=== PATIENT | female | born 1965 | race Caucasian/White ===

== ENCOUNTER → 2023-01-15 | Outpatient (CLI) | payer OTHER ==
[~2023-01-15] MED LIST: ASPI-1450 PO; IBUP-1493 PO
[2023-01-16 10:08] LABS: RUBEOLA (MEASLES) IGG 41.3 AU/mL (Immune >16.4)
== END | disposition home or self-care (01) ==
LOC: LABMN 10:34
PROVIDERS: ATTEND Internal Medicine
DX: Z02.1 Encounter for pre-employment examination (principal)
CPT/HCPCS: 86706; 86735; 86762; 86765; 86787